=== PATIENT | female | born 1965 | race Caucasian/White ===

== ENCOUNTER 2018-08-07 23:20 | Inpatient (IN) ==
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
[2018-08-08 01:16] LABS: Baso % (Auto) 0.6 % (0.0-2.0); Eos # (Auto) 0.2 th/mm3 (0.0-0.4); Eos % (Auto) 3.1 % (0.0-4.0); Hematocrit 39.1 % (35.0-46.0); Hemoglobin 13.7 gm/dL (11.6-15.3); Lymph # (Auto) 3.4 th/mm3 (1.0-4.8); Lymph % (Auto) 60.3 % (9.0-44.0); Mean Corpuscular HGB Conc 34.9 % (32.0-36.0); Mean Corpuscular Hemoglobin 30.2 pg (27.0-34.0); Mean Corpuscular Volume 86.5 fL (80.0-100.0); Mean Platelet Volume 7.2 fL (7.0-11.0); Mono # (Auto) 0.4 th/mm3 (0.0-0.9); Mono % (Auto) 7.2 % (0.0-8.0); Neut # (Auto) 1.6 th/mm3 (1.8-7.7); Neut % (Auto) 28.8 % (16.0-70.0); Platelet Count 264 th/mm3 (150-450); Red Blood Count 4.53 mil/mm3 (4.00-5.30); Red Cell Distribution Width 13.8 % (11.6-17.2); White Blood Count 5.6 th/mm3 (4.0-11.0)
[2018-08-08 01:36] LABS: Alanine Aminotransferase 23 U/L (10-53); Albumin 4.2 g/dL (3.4-5.0); Anion Gap 9 meq/L (5-15); Aspartate Aminotransferase 16 U/L (15-37); Blood Urea Nitrogen 13 mg/dL (7-18); Calcium 8.1 mg/dL (8.5-10.1); Carbon Dioxide 28.1 meq/L (21.0-32.0); Chloride 108 meq/L (98-107); Glomerular Filtration Rate Greater Than 89 mL/min (>89); Glucose,Random 102 mg/dL (74-106); Magnesium 2.2 mg/dL (1.5-2.5); Potassium 3.9 meq/L (3.5-5.1); Sodium 145 meq/L (136-145)
[2018-08-08 01:37] LABS: Platelet Estimate Normal (Normal); Platelet Morphology Normal (Normal); RBC Morphology Normal (Normal)
--- NOTE | 2018-08-08 01:37 | CT ---
EXAM DATE: 08/08/2018 1:28 AM EST AGE/SEX: 52 years / Female INDICATIONS: Patient complains of headache, insomnia, suicidal ideation, and hearing voices. CLINICAL DATA: This is the patient's initial encounter. Patient reports that signs and symptoms have been present for 3 days and indicates a pain score of 4/10. MEDICAL/SURGICAL HISTORY: Asthma. Hypertension. Schizophrenia, Depression . breast surgery, foot surgery RADIATION DOSE: 56.35 CTDI (mGy) COMPARISON: No prior exams available for comparison. TECHNIQUE: CT of the head without contrast. Using automated exposure control and adjustment of the mA and/or kV according to patient size, radiation dose was kept as low as reasonably achievable to ob tain optimal diagnostic quality images. DICOM format image data is available electronically for revi ew and comparison. FINDINGS: Cerebrum: The ventricles are normal for age. No evidence of midline shift, mass lesion, hemorrhage or acute infarction. No extraaxial fluid collections are seen. Posterior Fossa: The cerebellum and brainstem are intact. The 4th ventricle is midline. The cerebe llopontine angle is unremarkable. Extracranial: The visualized portion of the orbits is intact. Skull: The calvaria is intact. No evidence of skull fracture. CONCLUSION: 1. Negative CT Head non contrast. . Electronically signed by: Anthony Dhillon MD 08/08/2018 1:35 AM EST
[2018-08-08 01:46] LABS: Alkaline Phosphatase 91 U/L (45-117); Total Protein 7.9 g/dL (6.4-8.2)
[2018-08-08 01:47] LABS: Alcohol 203 mg/dL (0-5)
[2018-08-08 02:36] LABS: Amphetamine Screen,Urine Neg (Neg); Barbiturate Screen,Urine Neg (Neg); Cannabinoid Screen,Urine Neg (Neg); Cocaine Screen,Urine Neg (Neg); Opiate Screen,Urine Neg (Neg)
[2018-08-08] MEDS ORDERED: OLANZapine 10 MG Tablet PO ONE (02:43)
[2018-08-08] MEDS ORDERED: Acetaminophen 500 MG Tablet PO ONE (06:24)
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
[2018-08-08] MEDS ORDERED: Aluminum/Magnesium/Simethacone Susp 30 ML UDC PO PRN (13:41)
[2018-08-08] MEDS ORDERED: Acetaminophen 500 MG Tablet PO PRN (16:57)
[2018-08-08] MEDS: Methocarbamol 500 MG Tablet PO SCH ×2 (17:28→20:23)
[2018-08-08] MEDS: traZODone 100 MG Tablet PO SCH (20:23)
[2018-08-08] MEDS: lamoTRIgine 100 MG Tablet PO SCH (20:25)
[2018-08-09] MEDS: Methocarbamol 500 MG Tablet PO SCH ×4 (08:58→23:58)
[2018-08-09] MEDS: lamoTRIgine 100 MG Tablet PO SCH (08:59)
[2018-08-09 09:12] LABS: Calcium 8.9 mg/dL (8.5-10.1); Carbon Dioxide 22.2 meq/L (21.0-32.0); Chol/HDL Ratio 2.17 Ratio; HDL Cholesterol 58.4 mg/dL (40.0-60.0); Thyroid Stimulating Hormone 1.38 uIU/mL (0.358-3.740)
[2018-08-09 09:22] LABS: Potassium 4.1 meq/L (3.5-5.1)
[2018-08-09 11:13] LABS: Hemoglobin A1c 5.3 % (4.3-6.0)
--- NOTE | 2018-08-09 14:12 | P.HPPSY ---
Provisional Diagnosis Admission Date: August 08, 2018 13:48 [place] I.: Bipolar D/O, MRE mixed, severe, with psychotic features Competence Certification of Person's Competence To Provide Express and Informed Consent I have personally examined Fadumo Kraus, a person being served at [facility] on, August 09, 2018 1352. Express and informed consent means consent voluntarily given in writing, by a competent person, after sufficient explanation and disclosure of the subject matter involved to enable the person to make a knowing and willful decision without any element of force, fraud, deceit, duress, or other form of constraint or coercion. This person is 18 years of age or older, is not now known to be incompetent to consent to treatment with a guardian advocate, and does not have a health care surrogate or proxy currently making medical treatment decisions. I have found this person to be one of the following: [X] Competent to provide express and informed consent, as defined above, for voluntary admission to this facility and is competent to provide express and informed consent for treatment. He/she has the consistent capacity to make well reasoned, willful, and knowing decisions concerning his or her medical or mental health treatment. The person fully and consistently understands the purpose of the admission for examination/placement and is fully capable of personally exercising all rights assured under [place] [] Incompetent to provide express and informed consent to voluntary admission, and this is incompetent to provide express and informed consent to treatment. The person must be transferred to involuntary status and a petition for a guardian advocate filed with the Circuit Court. [] Refusing to provide express and informed consent to voluntary admission but is competent to provide express and informed consent for treatment. The person must be discharged or transferred to involuntary status. Form shall be completed within 24 hours of a person's arrival at the receiving facility and filed in the clinical record of each person: 1. Admitted on a voluntary basis 2. Permitted to provide express and informed consent to his/her own treatment 3. Allowed to transfer from involuntary to voluntary status 4. Prior to permitting a person to consent to his or her own treatment after having been previously found incompetent to consent to treatment. History of Present Illness Capacity: Has capacity Chief Complaint: "I need an adjustment in meds. I'm depressed and was hearing voices" History of Present Illness: Pt is a 52 YOWF with a hx of bipolar disorder who was admitted secondary to depression with . She was brought to [facility] ED by her daughter manish is a nurse due to worsening mood lability and psychosis. She recently moved to this area and has not yet established with a psychiatrist . She was labile and agitated in ED and required an ETO of zyprexa 10mg X1 to maintain safety. ED records note that pt was labile in mood and overly flirtacious with staff. Today, she has been cooperative with medications. She continues to respond to AH but denies SI. She has been pressing for discharge stating that she doesn't want to upset [employer] her employer. She is somewhat disheveled. She reports a long hx of bipolar disorder. She reports that most recent hospitalization was 4 years ago and she has been stable on current regimen of Abilify 15mg po Qdaily and lamotrigine 200mg po Qdaily. She reports that she was prescribed aricept several years ago due to suspicion of early onset dementia but symptoms have not progressed but she has continued to take it, "just in case." She is alert and oriented X4 and a good historian. She reports that she has steadily had increasing depressive symptoms. She reports that several days ago, her mood deteriorated significantly and she experienced racing thoughts, depressed mood, irritablity and command type, instructing her to slice her wrist and hurt self. She states that she recently moved to [facility] from [place] and has been unable to find a psychiatrist locally. "Everyone is either full or they don't take my insurance. I called 20 offices!" She states that she is running out of medication and is fearful that she is getting sick again. "Naomi been there before. I don't want to go back to how I used to be. I need a medication adjustment." Pt denies any medication side effects and states that medication has worked very well for her in the past. She consents to try an increased dose of Abilify. Indication, rationale for use, and potential side effects including tardive dyskinesia and metabolic syndrome discussed. Past psych Hx: 7 lifetime hospitalizations. Reports multiple trials of different medications and abilify and lamotrigine most effective Family Psych Hx: no familial hx of dementia, no family psych hx Social hx: Moved from [place] to [facility]. Employed at [email or web address]. Has an adult daughter who is a nurse who lives locally and is involved in care. Has a home and will be returning there after discharge. - Inpatient Certification I certify that the inpatient services were ordered in accordance with Medicare regulations governing the order. This includes certification that hospital inpatient services are reasonable and necessary and in the case of services not specified as inpatient-only under 42 CFR 419.22(n), that they are appropriately provided as inpatient services in accordance to with the 2-midnight benchmark under 43 CFR 412.3(e) I certify that inpatient psychiatric hospital services are medically necessary. Evaluation and treatment and/or diagnostic testing are expected to improve the patient's condition. The patient needs on a daily basis, active treatment furnished directly by or requiring the supervision of inpatient psychiatric facility personnel. Estimated Total Length of Stay (Days): 8 Plans for Post Hospital Care: Home Review of Systems Psychiatric: Reports behavioral changes, Reports depression, Reports difficulty concentrating, Reports hearing things others do not hear, Reports irritability, Reports mood swings, Reports thoughts of hurting/killing yourself PMFSH - History History Provided By: Patient - Medical History Medical History: Medical History (Last Reviewed 08/09/18 @ 18:08 by Pema Hernandez MD) Acute (undifferentiated) schizophrenia Asthma Bipolar 1 disorder Depression HTN (hypertension) Schizo affective schizophrenia - Surgical History Surgical History: Surgical History (Last Reviewed 08/09/18 @ 18:08 by Pema Hernandez MD) Hx of breast surgery Hx of foot surgery - Social History I have reviewed the patient's Social History: Yes - Tobacco History Second Hand Smoke Exposure: No Smoking Status: Never smoker - Alcohol History How Often Do You Have a Drink Containing Alcohol: 2 to 3 times a week - Substance Use History Substance History: No History of Abuse - Substance Use Type Alcohol Status: Early Remission Route Used: By Mouth Last Used: today Reason for Use: Calm Down, Feels Good Comment: patient is a recovering alcoholic per daughter. today was first day drinking in months - Travel History Recent Travel in the [facility] Within the Last 8 Weeks: No Recent Travel Out of the Country Within the Last 8 Weeks: No - Immunization History Tetanus Immunization: <5 Years Hx Influenza Vaccine This Season: No Quality Measures - Psychiatric History Psychological trauma history: none Violence risk to others in the last 6 months: was agitated and aggressive in ED at admission Violence risk to self in the last 6 months: denies - Substance Abuse History Drug or alcohol use in the past 12 months: drank prior to admission - Patient Strengths Patient's strengths (minimum of 2): supportive family, has employment, has home, insight into illnes Medications and Allergies Active Medications: Active Medications Acetaminophen (Tylenol) 500 mg PO Q6H PRN PRN Reason: PAIN SCALE 1 TO 10 Last Admin: 08/08/18 17:26 Dose: 500 mg Al Hydrox/Mg Hydrox/Simethicone (Mag-Al Plus Susp Liq) 30 ml PO Q6H PRN PRN Reason: DYSPEPSIA Al Hydroxide/Mg Hydroxide (Milk Of Magnesia Liq) 30 ml PO Q12H PRN PRN Reason: Mild Constipation Aripiprazole (Abilify) 15 mg PO DAILY [facility] Last Admin: 08/09/18 08:59 Dose: 15 mg Atorvastatin Calcium (Lipitor) 20 mg PO [facility] Last Admin: 08/08/18 20:22 Dose: 20 mg Donepezil HCl (Aricept) 10 mg PO DAILY [facility] Last Admin: 08/09/18 08:58 Dose: 10 mg Lactulose (Lactulose Liq) 30 ml PO DAILY PRN PRN Reason: SEVERE CONSITIPATION Lamotrigine (Lamictal) 200 mg PO DAILY [facility] Last Admin: 08/09/18 08:59 Dose: 200 mg Methocarbamol (Robaxin) 750 mg PO QID [facility] Last Admin: 08/09/18 13:26 Dose: 750 mg Sennosides (Senokot) 17.2 mg PO Q12H PRN PRN Reason: Moderate Constipation Trazodone HCl (Desyrel) 300 mg PO [facility] Last Admin: 08/08/18 20:23 Dose: 300 mg Allergies Allergy/AdvReac Type Severity Reaction Status Date / Time hydromorphone [From Dilaudid] Allergy Swelling Verified 08/07/18 23:37 mirtazapine [From Remeron] Allergy Psychosis Verified 08/08/18 03:03 risperidone Allergy Psychosis Verified 08/08/18 03:03 Home Medications Medication Instructions Recorded Confirmed Type aripiprazole 15 mg PO DAILY 08/08/18 08/08/18 History atorvastatin 20 mg PO HS 08/08/18 08/08/18 History calcium carbonate-vitamin D3 1 tab PO DAILY 08/08/18 08/08/18 History [Caltrate 600 + D] donepezil 10 mg PO DAILY 08/08/18 08/08/18 History hydroxyzine pamoate 100 mg PO BID PRN 08/08/18 08/08/18 History lamotrigine 200 mg PO DAILY 08/08/18 08/08/18 History methocarbamol 750 mg PO QID 08/08/18 08/08/18 History temazepam 1 cap PO HS 08/08/18 08/08/18 History tramadol 50 mg PO Q6H 08/08/18 08/08/18 History trazodone 300 mg PO HS 08/08/18 08/08/18 History Results - Labs CBC & Chem 7: 08/08/18 01:02 08/09/18 08:25 Labs: Laboratory Results - last 24 hr 08/09/18 08/09/18 08:25 08:25 Sodium 136 Potassium 4.1 Chloride 106 Carbon Dioxide 22.2 Anion Gap 8 BUN 16 Creatinine 0.91 Estimated GFR 64 L Random Glucose 162 H Hemoglobin A1c 5.3 Calcium 8.9 D Triglycerides 163 H Cholesterol 127 LDL Cholesterol, Calc 36 HDL Cholesterol 58.4 Cholesterol/HDL Ratio 2.17 TSH 1.380 Exam Vital signs: Vital Signs 08/08/18 16:02 08/09/18 05:11 Temperature 97.7 F 98 F Pulse Rate 77 53 L Respiratory Rate 16 16 Blood Pressure 171/78 H 129/60 Pulse Oximetry 100 96 Intake & Output 08/08/18 08/09/18 08/09/18 18:59 06:59 18:59 Intake Total 720 / 720 Balance 720 / 720 Weight 72.2 kg Intake: Oral 720 / 720 Other: Weight On Admission 70.3 kg Mental Status Examination Appearance: Disheveled Consciousness: Alert Orientation: x4 Motor Activity: Normal gait Speech: Pressured (mild) Language: Adequate Fund of Knowledge: Adequate Attention and Concentration: Easily distracted Memory: Unremarkable, Immediate (intact), Recent (intact), Remote (intact) Mood: Sad, Other (mixed) Affect: Labile Thought Process & Associations: Linear Thought Content: Hallucinations Hallucination Type: Auditory (command to hurt self) Delusion Type: None Suicidal Ideation: No Suicidal Plan: No Suicidal Intention: No Homicidal Ideation: No Homicidal Plan: No Homicidal Intention: No Insight: Adequate Judgment: Adequate Assessment and Plan - Assessment (1) Bipolar disorder, curr episode mixed, severe, with psychotic features Code(s): F31.64 - Bipolar disorder, current episode mixed, severe, with psychotic features Status: Acute (2) Alcohol abuse Code(s): F10.10 - Alcohol abuse, uncomplicated Status: Acute - Plan Plan: Estimated LOS: [] days Titrate abilify to 20mg po Qdaily for mood stabilization and psychosis. Continue other medications without changes. Pt will need referral to mental health services upon discharge. Will repeat BMP due to elevation in glucose ( possibly due to agitation) and consult hospitalist if indicated. Justification for Continued Inpatient Stay: impairments in safety
[2018-08-09] MEDS: traZODone 100 MG Tablet PO SCH (20:18)
[2018-08-10] MEDS: lamoTRIgine 100 MG Tablet PO SCH (09:08)
[2018-08-10] MEDS: Methocarbamol 500 MG Tablet PO SCH ×4 (09:09→20:37)
--- NOTE | 2018-08-10 10:51 | P.PNPSY ---
Subjective Chief Complaint: "I need an adjustment in meds. I'm depressed and was hearing voices" Remarks: HPI Patient is a somewhat unreliable historian. There is a report of a blood alcohol of 208 yet the patient claims she only had 3 or 4 glasses of wine. Later she admitted to drinking for at least the past 7 months. The symptoms have progressed over the past 6-7 months to the point of command AHA with depreciating and self harm demands toward self, so that when intoxicated the possibility of suicide is possible. There is also a past history of mixed bipolar disorder and alcohol dependance. Alcohol helps her and then worsens her psychosis. Currently. the patient's acute symptoms include hearing voices although today she denies that the voices are present. The patient was crying and walker on admission. It is unclear how much the alcohol influenced that since the patient tends to minimize and give an inconsistent history of her alcohol abuse. Chronically the patient has been treated for alcohol abuse and bipolar disorder mixed with psychotic features. She has [facility] to [facility] treatment since moving from the [facility] 7 months ago. She has reduced her recommended dosage of medication in order to extend her supply. Patient claims she tried dozens of places, but could not find someone who accepted her Medicaid insurance. Past history: Apparently, the patient's initial deterioration and subsequent 8 hospitalization began 7 years ago with of her parents as well as divorce from her . Social history. The patient presented to the ED accompanied by her daughters. 1 of her daughters is a nurse. Review of Systems All other systems reviewed negative except as stated in HPI Constitutional: Reports headache(s) Comments: denies ENT issues Musculoskeletal: Reports back pain Psychiatric: Reports abnormal sleep pattern, Reports anxiety, Reports behavioral changes, Reports depression, Reports difficulty concentrating, Reports hearing things others do not hear Mental Status Examination Appearance: Disheveled Consciousness: Alert Orientation: x4 Motor Activity: Normal gait Speech: Rapid Language: Adequate Fund of Knowledge: Adequate Attention and Concentration: Adequate Memory: Unremarkable, Immediate (intact), Recent (intact), Remote (intact) Mood: Sad, Other (mixed) Affect: Labile Thought Process & Associations: Linear Thought Content: Hallucinations (Denies today) Hallucination Type: Auditory (command to hurt self are denied today) Delusion Type: None Suicidal Ideation: No Suicidal Plan: No Suicidal Intention: No Homicidal Ideation: No Homicidal Plan: No Homicidal Intention: No Insight: Fair Judgment: Impulsive Mental Status Exam Remarks: The patient's rapid improvement suggests influence of the high alcohol level on admission. However the patient will require further observation to determine what other acute or chronic etiologies are involved Assessment and Plan - Assessment (1) Bipolar disorder, curr episode mixed, severe, with psychotic features Code(s): F31.64 - Bipolar disorder, current episode mixed, severe, with psychotic features Status: Acute - Plan Plan: Estimated LOS: [] days Titrate abilify to 20mg po Qdaily for mood stabilization and psychosis. Continue other medications without changes. Pt will need referral to mental health services upon discharge. Will repeat BMP due to elevation in glucose ( possibly due to agitation) and consult hospitalist if indicated. Note for 08/10/2018 Agree with previous plan. I would add consultation with the daughters and setting up an effective recovery plan for the alcoholism. There will need to be a recommendation of outpatient follow-up with [facility]. Patient's A1c is 5.3 and is not of great concern unless the patient family history as well as symptoms dictate a more careful endocrine consult. Justification for Continued Inpatient Stay: While the acuity of her presenting symptoms seems diminished are perhaps even absent since she is sober. There is still in intensity and acceleration of thought processes as well as lack of reliability that needs additional period of observation. - Attending Attestation I have examined the patient [id number] interview and find a need for further evaluation and treatment.
--- NOTE | 2018-08-10 18:48 | ECG ---
Date Performed: 08/09/2018 Time Performed: 20:50:19 PTAGE: 52 years EKG: SINUS BRADYCARDIA BORDERLINE ECG NO PREVIOUS TRACING DOCTOR: Ryan Doe Interpretating Date/Time 08/10/2018 18:45:21
[2018-08-10] MEDS: traZODone 100 MG Tablet PO SCH (20:37)
[2018-08-11] MEDS: Methocarbamol 500 MG Tablet PO SCH ×4 (08:28→21:13)
[2018-08-11] MEDS: lamoTRIgine 100 MG Tablet PO SCH (08:30)
--- NOTE | 2018-08-11 15:18 | P.PNPSY ---
Subjective Chief Complaint: "I need an adjustment in meds. I'm depressed and was hearing voices" Remarks: Patient seen and reviewed with nurse. Patient is anxious to get home and denying all problems that brought her to the hospital. She claims she no longer hears voices. She is medication seeking for complaints of insomnia. Currently she is taking 300 mg at night, but would like a benzodiazepine. She claims to have had some success with temazepam. Patient is retracting some of the information she gave her regarding her alcohol use over the past several months. She now claims she only had 4 small glasses of wine and denies that the drinking has anything to do with the return of her anxiety or her auditory hallucinations. Patient claims never to have had a withdrawal problem with her alcohol. Assessment in team indicate a need for collaborative information from her 2 nurse daughters. Her [place] act is up tomorrow and very likely will not meet criteria for extension likely signed voluntary. Plan will be for the patient to seek psychiatric and dual diagnosis treatment at [facility]. Patient is currently taking Lamictal 200 mg a day along with 20 mg of Abilify. She demonstrates no acuity in his far as her psychosis or mood disorder is concerned. Mental Status Examination Appearance: Appropriate Consciousness: Alert Orientation: x4 Motor Activity: Normal gait Speech: Unremarkable Language: Adequate Fund of Knowledge: Adequate Attention and Concentration: Adequate Memory: Unremarkable, Immediate (intact), Recent (intact), Remote (intact) Mood: Sad, Anxious, Other (mixed) Affect: Anxious Thought Process & Associations: Linear Thought Content: Appropriate Hallucination Type: None Delusion Type: None Suicidal Ideation: No Suicidal Plan: No Suicidal Intention: No Homicidal Ideation: No Homicidal Plan: No Homicidal Intention: No Insight: Fair Judgment: Impulsive Assessment and Plan - Assessment (1) Bipolar disorder, curr episode mixed, severe, with psychotic features Code(s): F31.64 - Bipolar disorder, current episode mixed, severe, with psychotic features Status: Acute - Plan Plan: Estimated LOS: [] days Titrate abilify to 20mg po Qdaily for mood stabilization and psychosis. Continue other medications without changes. Pt will need referral to mental health services upon discharge. Will repeat BMP due to elevation in glucose ( possibly due to agitation) and consult hospitalist if indicated. Note for 08/10/2018 Agree with previous plan. I would add consultation with the daughters and setting up an effective recovery plan for the alcoholism. There will need to be a recommendation of outpatient follow-up with [facility]. Patient's A1c is 5.3 and is not of great concern unless the patient family history as well as symptoms dictate a more careful endocrine consult. Justification for Continued Inpatient Stay: Patient has additional day for observation and evaluation of medication effects. Discharge Planning: Patient will be discharged to the care of her daughters 1 of whom is a registered nurse. Patient hopefully will follow up with [facility] for dual diagnosis treatment. - Attending Attestation Patient requires additional 24-hour period for observation and evaluation
[2018-08-11] MEDS: traZODone 100 MG Tablet PO SCH (21:12)
[2018-08-12 05:50] VITALS: BP 126/99; PULSE 60; RESP 16; TEMP 98.2; O2SAT 98
[2018-08-12] MEDS: lamoTRIgine 100 MG Tablet PO SCH (08:24)
[2018-08-12] MEDS: Methocarbamol 500 MG Tablet PO SCH ×2 (08:25→12:29)
--- NOTE | 2018-08-12 14:21 | P.DSPSY ---
Psychiatry Discharge Summary Inpatient Psychiatric care?: Yes Advance Directives: No Mental Health Advance Directive: No Health Care Proxy: No - Admission Admission Date: August 08, 2018 13:48 - Admission Diagnosis (1) Bipolar disorder, curr episode mixed, severe, with psychotic features Code(s): F31.64 - Bipolar disorder, current episode mixed, severe, with psychotic features Brief History: Pt is a 52 YOWF with a hx of bipolar disorder who was admitted secondary to depression with . She was brought to [facility] [place] [place] ED by her daughter manish is a nurse due to worsening mood lability and psychosis. She recently moved to this area and has not yet established with a psychiatrist . She was labile and agitated in ED and required an ETO of zyprexa 10mg X1 to maintain safety. ED records note that pt was labile in mood and overly flirtacious with staff. Today, she has been cooperative with medications. She continues to respond to AH but denies SI. She has been pressing for discharge stating that she doesn't want to upset [employer] her employer. She is somewhat disheveled. She reports a long hx of bipolar disorder. She reports that most recent hospitalization was 4 years ago and she has been stable on current regimen of Abilify 15mg po Qdaily and lamotrigine 200mg po Qdaily. She reports that she was prescribed aricept several years ago due to suspicion of early onset dementia but symptoms have not progressed but she has continued to take it, "just in case." She is alert and oriented X4 and a good historian. She reports that she has steadily had increasing depressive symptoms. She reports that several days ago, her mood deteriorated significantly and she experienced racing thoughts, depressed mood, irritablity and command type, instructing her to slice her wrist and hurt self. She states that she recently moved to [facility] from [place] and has been unable to find a psychiatrist locally. "Everyone is either full or they don't take my insurance. I called 20 offices!" She states that she is running out of medication and is fearful that she is getting sick again. "Naomi been there before. I don't want to go back to how I used to be. I need a medication adjustment." Pt denies any medication side effects and states that medication has worked very well for her in the past. She consents to try an increased dose of Abilify. Indication, rationale for use, and potential side effects including tardive dyskinesia and metabolic syndrome discussed. Past psych Hx: 7 lifetime hospitalizations. Reports multiple trials of different medications and abilify and lamotrigine most effective Family Psych Hx: no familial hx of dementia, no family psych hx Social hx: Moved from [place] to [facility]. Employed at [employer]. Has an adult daughter who is a nurse who lives locally and is involved in care. Has a home and will be returning there after discharge. Tobacco Use In Past 30 Days: No How Often Do You Have a Drink Containing Alcohol: 4 or more times a week Hospital Course: Patient had uneventful and rapid recovery. The patient no longer planes of hallucinatory experiences on the following day. Once she had become sober the psychotic symptoms disappeared. Patient denies any history of withdrawal symptoms during the course of her stay. Patient was drug-seeking throughout her stay requesting mainly benzodiazepines. There is no evidence of the need for this and the patient was discharged on her home medications. The problem she claimed started with inability to obtain psychiatric care and rationing of her psychotropic medications. She was discharged with a 30-day supply of Lamictal 200 mg daily and Abilify 20 mg daily. Patient was encouraged to attend AA meetings. The feeling was that the patient was at baseline and not likely to respond to other acute interventions medication changes. - Discharge Discharge Date: 08/12/18 - Discharge Diagnosis (1) Bipolar disorder, curr episode mixed, severe, with psychotic features Code(s): F31.64 - Bipolar disorder, current episode mixed, severe, with psychotic features Status: Acute Discharge Disposition: Home - Discharge Instructions Discharge Diet: Regular Diet Activities You Can Perform: Regular- No Restrictions Activities to Avoid: Driving for 24 Hours - Discharge Time > 30 minutes Mental Status Examination Appearance: Appropriate Consciousness: Alert Orientation: x4 Motor Activity: Normal gait Speech: Unremarkable Language: Adequate Fund of Knowledge: Adequate Attention and Concentration: Adequate Memory: Unremarkable, Immediate (intact), Recent (intact), Remote (intact) Mood: Appropriate, Sad, Anxious Affect: Anxious Thought Process & Associations: Linear Thought Content: Appropriate Hallucination Type: None Delusion Type: None Suicidal Ideation: No Suicidal Plan: No Suicidal Intention: No Homicidal Ideation: No Homicidal Plan: No Homicidal Intention: No Insight: Fair Judgment: Impulsive Discharge/Advance Care Plan - Results Vital Signs: Last Vital Signs Temp 98.2 F 08/12/18 05:49 Pulse 60 08/12/18 05:49 Resp 16 08/12/18 05:49 BP 126/99 H 08/12/18 05:49 Pulse Ox 98 08/12/18 05:49 Lab Results: Laboratory Results Hemoglobin A1c 5.3 % (4.3-6.0) 08/09/18 08:25 Triglycerides 163 mg/dL (42-150) H 08/09/18 08:25 Cholesterol 127 mg/dL (120-200) 08/09/18 08:25 LDL Cholesterol, Calc 36 mg/dL (0-99) 08/09/18 08:25 HDL Cholesterol 58.4 mg/dL (40.0-60.0) 08/09/18 08:25 TSH 1.380 uIU/mL (0.358-3.740) 08/09/18 08:25 Summary of Procedures: None Imaging: ITS Impressions Head CT 08/08/18 00:02 CONCLUSION: 1. Negative CT Head non contrast. . Pending Results: None - Medications Number of antipsychotic medications at discharge: 1 - Discharge Care Plan Goals to Promote Your Health: * To prevent worsening of your condition and complications * To maintain your health at the optimal level Directions to Meet Your Goals: Take your medications as prescribed Follow your dietary instruction Follow activity as directed Keep your appointments as scheduled Take your immunizations and boosters as scheduled If your symptoms worsen call your PCP, if no PCP go to Urgent Care Center or Emergency Room For 24/03 questions related to your inpatient stay or results of tests pending at discharge, please contact Dr. Jevon Babin MD at Smoking is Dangerous to Your Health. Avoid second hand smoking
== END 2018-08-12 13:55 | disposition home or self-care (01) ==
LOC: NEPJ 23:20 → NEDA 08-08 13:48 → H260 08-08 14:14
PROVIDERS: ADMIT Psychiatry & Neurology Child & Adolescent Psychiatry; ATTEND Psychiatry & Neurology Child & Adolescent Psychiatry